=== PATIENT | female | born 1975 | race African-American/Black ===

== ENCOUNTER 2017-05-12 09:42 | Observation (INO) ==
[2017-05-12] MEDS ORDERED: ONDANSETRON 4 MG/2 ML VIAL IV STA ×2 (10:16→11:59)
[2017-05-12] MEDS ORDERED: ONDANSETRON 4 MG/2 ML VIAL ONE ×2 (10:17→12:26)
[2017-05-12 10:40] LABS: Basophils % 0.1 % (0.0-0.8); Eosinophils # 0.1 10*3/uL (0.0-0.87); Eosinophils % 0.5 % (0.00-10.9); Hematocrit 34.4 VOL% (35.7-47.0); Immature Granulocytes Absolute 0.11 #; Lymphocytes # 1.7 10*3/uL (1.4-4.0); Lymphocytes % 15.8 % (21.3-54.2); Mean Corpuscular Hemoglobin 26 PG (27-34); Mean Corpuscular Volume 81.9 FL (87-102); Mean Platelet Volume 9.3 FL (9.6-12.0); Monocytes # 0.5 10*3/uL (0.11-0.8); Monocytes % 5.1 % (1.7-12.7); Neutrophils # 8.2 10*3/uL (1.4-7.4); Neutrophils % 77.5 % (38.7-73.9); Platelet Count 243 T/CUMM (130-400); Red Cell Distribution Width 15.2 % (9.3-17.3); White Blood Count 10.6 T/CUMM (4-12)
[2017-05-12 10:49] LABS: PT Patient Result 10.4 SECS; Partial Thromboplastin Time 22.7 SECS (0-40)
[2017-05-12 10:57] LABS: Lactic Acid 1.3 MMOL/L (0.4-2.0)
[2017-05-12 11:11] LABS: Alanine Aminotransferase 21 U/L (13-56); Albumin 3.5 G/DL (3.4-5.0); Alkaline Phosphatase 62 U/L (45-117); Amylase 77 U/L (25-115); Aspartate Amino Transferase 25 U/L (0-37); Bilirubin,Total < 0.39 MG/DL (0.2-1.0); Blood Urea Nitrogen 14 MG/DL (7-18); Glucose 102 MG/DL (74-106); Osmolality,Calculated 281.3 MOS/KG (273-304); Potassium 3.8 MMOL/L (3.5-5.1); Sodium 141 MMOL/L (136-145); Total Protein 8.1 G/DL (6.4-8.3)
[2017-05-12] MEDS ORDERED: HYDROmorphone 2 MG/1 ML VIAL IV STA (11:59)
[2017-05-12 12:19] LABS: Barbiturates Screen,Urine Negative (Negative); Benzodiazepines Screen,Urine Negative (Negative); Cannabinoid Screen,Urine Negative (Negative); Opiate Screen,Urine Positive (Negative); Phencyclidine Screen,Urine Negative (Negative)
[2017-05-12] MEDS ORDERED: HYDROmorphone 2 MG/1 ML VIAL ONE (12:26)
[2017-05-12] MEDS ORDERED: MORPHINE 2 MG/1 ML SYRINGE IV PRN (13:00)
[2017-05-12] MEDS ORDERED: ONDANSETRON 4 MG/2 ML VIAL IV PRN (13:00)
[2017-05-12] MEDS ORDERED: ACETAMINOPHEN 325 MG TABLET PO PRN (13:00)
[2017-05-12 13:47] LABS: Apearance,Urine CLEAR (Clear); Bacteria,Urine Occasional /HPF (Few); Bilirubin,Urine Negative (Negative); Blood, Urine Negative (Negative); Glucose,Urine (UA) Negative (Negative); Ketones,Urine Negative (Negative); Mucus,Urine Occasional /LPF (Occasional); Nitrite,Urine Negative (Negative); Protein,Urine Negative; RBC,Urine 1 /HPF (0-4); Squamous Epithelial Cell,Urine Occasional /HPF (0-10); Urine Color Yellow (Yellow); Urine Specific Gravity 1.047 (1.001-1.035); Urine Urobilinogen < 2.0 EU/DL (0.2-1.0); WBC,Urine 3 /HPF (0-6)
[2017-05-12] MEDS: LACTATED RINGERS 1,000 ML IV SCH (16:15)
[2017-05-13] MEDS ORDERED: ceFAZolin 1,000 MG VIAL IV ONE (06:07)
[2017-05-13 07:32] LABS: Basophils % 0.1 % (0.0-0.8); Eosinophils % 0.3 % (0.00-10.9); Hematocrit 33.2 VOL% (35.7-47.0); Hemoglobin 10.7 GM/DL (12.0-16.0); Immature Granulocytes % 0.4 %; Immature Granulocytes Absolute 0.03 #; Lymphocytes # 1.4 10*3/uL (1.4-4.0); Lymphocytes % 20.2 % (21.3-54.2); Mean Corpuscular HGB Conc 32.2 GM/DL (32-36); Mean Corpuscular Hemoglobin 26 PG (27-34); Mean Corpuscular Volume 80.8 FL (87-102); Mean Platelet Volume 9.3 FL (9.6-12.0); Monocytes # 0.4 10*3/uL (0.11-0.8); Monocytes % 5.3 % (1.7-12.7); Neutrophils % 73.7 % (38.7-73.9); Platelet Count 232 T/CUMM (130-400); Red Blood Count 4.11 MC/CUMM (3.8-5.5); Red Cell Distribution Width 15.2 % (9.3-17.3); White Blood Count 6.8 T/CUMM (4-12)
[2017-05-13 08:05] LABS: Calcium 8.7 MG/DL (8.5-10.1); Osmolality,Calculated 279.3 MOS/KG (273-304); Potassium 3.8 MMOL/L (3.5-5.1)
[2017-05-13] MEDS: PANTOPRAZOLE 40 MG TABLET PO SCH (09:35)
[2017-05-13] MEDS ORDERED: DEXAMETHASONE 4 MG/1 ML VIAL ONE (16:24)
[2017-05-13] MEDS ORDERED: TISSUE ADHESIVE 1 EACH APPLICATOR TOP ONE (17:00)
[2017-05-13] MEDS ORDERED: fentaNYL 100 MCG/2 ML VIAL ONE (17:14)
[2017-05-13] MEDS ORDERED: MIDAZOLAM 2 MG/2 ML VIAL ONE (17:14)
[2017-05-13] MEDS ORDERED: PROPOFOL 200 MG/20 ML VIAL IV ONE (17:14)
[2017-05-13] MEDS ORDERED: KETOROLAC 30 MG/1 ML VIAL ONE (17:15)
[2017-05-13] MEDS ORDERED: ONDANSETRON 4 MG/2 ML VIAL ONE (17:15)
[2017-05-13] MEDS ORDERED: ONDANSETRON 4 MG/2 ML VIAL IV PRN (17:27)
[2017-05-13] MEDS: HYDROmorphone 2 MG/1 ML VIAL IV PRN ×2 (17:30→17:35)
[2017-05-13] MEDS: LACTATED RINGERS 1,000 ML IV SCH ×2 (19:05→23:37)
[2017-05-14 11:35] VITALS: BP 106/81
[2017-05-14] MEDS: PANTOPRAZOLE 40 MG TABLET PO SCH (11:54)
[2017-05-19] MEDS ORDERED: INTERFERON BETA 30 MCG IM SCH (10:09)
== END 2017-05-14 13:25 | disposition home or self-care (01) ==
LOC: N.ED 09:42 → N.EDINP 09:42 → N.3E 15:04
PROVIDERS: ADMIT Surgery; ATTEND Surgery